=== PATIENT | female | born 1985 | race Two or more races ===

== ENCOUNTER 2017-03-07 11:16 | Emergency (ER) | payer OTHER ==
[~2017-03-07] VITALS: Ht 160 cm; Wt 68.0 kg
[2017-03-07 11:20] VITALS: BP 131/88
== END 2017-03-07 11:57 | disposition home or self-care (01) ==
LOC: ER 11:17
DX: H10.9 Unspecified conjunctivitis (principal); H00.016 Hordeolum externum left eye, unspecified eyelid
CPT/HCPCS: A4606; Z7610

== ENCOUNTER 2017-03-17 18:03 | Emergency (ER) | payer OTHER ==
[~2017-03-17] VITALS: Ht 160 cm; Wt 67.1 kg
--- NOTE | 2017-03-17 18:03 | NUR ---
BLURRED VISION,SEEN HERE ON 03/07/17 FOR CONJUNCTIVITIS
--- NOTE | 2017-03-17 18:33 | NUR ---
DR. VALERIO PIMENTEL, WHO IS DIRECTOR IT PROJECT FOR DR. GORDON [phone]
[2017-03-17 19:18] VITALS: BP 122/67
== END 2017-03-17 19:19 | disposition home or self-care (01) ==
LOC: ER 18:04
DX: H10.33 Unspecified acute conjunctivitis, bilateral (principal)
CPT/HCPCS: 99283; A4606; Z7610